=== PATIENT | male | born 1940 | race African-American/Black ===

== ENCOUNTER → 2019-10-18 | Outpatient (CLI) | payer OTHER | LOC: SJCVC 12:25 | DX: R94.31 Abnormal electrocardiogram [ECG] [EKG] (principal); I44.0 Atrioventricular block, first degree; R00.1 Bradycardia, unspecified; I45.10 Unspecified right bundle-branch block; I25.10 Atherosclerotic heart disease of native coronary artery without angina pectoris; E78.00 Pure hypercholesterolemia, unspecified; I12.9 Hypertensive chronic kidney disease with stage 1 through stage 4 chronic kidney disease, or unspecified chronic kidney disease; N18.3 Chronic kidney disease, stage 3 (moderate); R53.83 Other fatigue ==

== ENCOUNTER → 2019-12-07 | Outpatient (CLI) | payer OTHER | LOC: SJCVC 15:06 | DX: R94.31 Abnormal electrocardiogram [ECG] [EKG] (principal); I45.10 Unspecified right bundle-branch block; I44.0 Atrioventricular block, first degree; R00.1 Bradycardia, unspecified; I25.10 Atherosclerotic heart disease of native coronary artery without angina pectoris; I10 Essential (primary) hypertension; E78.00 Pure hypercholesterolemia, unspecified; I12.9 Hypertensive chronic kidney disease with stage 1 through stage 4 chronic kidney disease, or unspecified chronic kidney disease; N18.3 Chronic kidney disease, stage 3 (moderate) ==

== ENCOUNTER → 2020-06-12 | Outpatient (CLI) | payer OTHER, MEDICARE | LOC: SJCVC 13:17 | PROVIDERS: ATTEND Internal Medicine Cardiovascular Disease | DX: I25.810 Atherosclerosis of coronary artery bypass graft(s) without angina pectoris (principal); R94.31 Abnormal electrocardiogram [ECG] [EKG]; I45.10 Unspecified right bundle-branch block; I11.9 Hypertensive heart disease without heart failure; E78.00 Pure hypercholesterolemia, unspecified; Z79.82 Long term (current) use of aspirin; Z79.899 Other long term (current) drug therapy; Z87.891 Personal history of nicotine dependence ==

== ENCOUNTER → 2020-09-04 | Outpatient (CLI) | payer OTHER, MEDICARE | LOC: SJCVCIMAG 10:18 | PROVIDERS: ATTEND Internal Medicine Cardiovascular Disease | DX: I45.10 Unspecified right bundle-branch block (principal); I11.9 Hypertensive heart disease without heart failure; I35.1 Nonrheumatic aortic (valve) insufficiency; I25.10 Atherosclerotic heart disease of native coronary artery without angina pectoris; Z98.61 Coronary angioplasty status; Z79.899 Other long term (current) drug therapy ==

== ENCOUNTER → 2020-09-04 | Outpatient (CLI) | payer OTHER | LOC: CAT 15:57 | PROVIDERS: ATTEND Internal Medicine Cardiovascular Disease | DX: Z13.6 Encounter for screening for cardiovascular disorders (principal); I25.10 Atherosclerotic heart disease of native coronary artery without angina pectoris; E78.00 Pure hypercholesterolemia, unspecified ==

== ENCOUNTER → 2021-04-09 | Outpatient (CLI) | payer OTHER, MEDICARE | LOC: SJCVC 13:54 | PROVIDERS: ATTEND Internal Medicine Cardiovascular Disease | DX: R94.31 Abnormal electrocardiogram [ECG] [EKG] (principal); I45.2 Bifascicular block; I25.10 Atherosclerotic heart disease of native coronary artery without angina pectoris; I45.10 Unspecified right bundle-branch block; E78.00 Pure hypercholesterolemia, unspecified; I10 Essential (primary) hypertension; R93.1 Abnormal findings on diagnostic imaging of heart and coronary circulation; Z79.82 Long term (current) use of aspirin; Z79.899 Other long term (current) drug therapy; Z87.891 Personal history of nicotine dependence; Z72.89 Other problems related to lifestyle; Z88.8 Allergy status to other drugs, medicaments and biological substances ==